=== PATIENT | male | born 1955 | race African-American/Black ===

== ENCOUNTER 2019-06-16 14:41 | Emergency (ER) | payer MEDICARE, MEDICAID | END 2019-06-16 15:57 | disposition home or self-care (01) | LOC: ERS 14:41 | DX: L97.929 Non-pressure chronic ulcer of unspecified part of left lower leg with unspecified severity (principal) | CPT/HCPCS: 99283 ==

== ENCOUNTER 2019-07-04 16:02 | Inpatient (IN) | payer MEDICARE, MEDICAID ==
--- NOTE | 2019-07-04 16:41 | PDOC.FPRHP ---
- History of Present Illness Chief Complaint: foot pain, black toe History of Present Illness: This is a 64yo M who is a direct admit from [facility] for left foot pain and ulcer. The patient was at clinic to establish care earlier today. He states that about 2 weeks ago he had excruciating left foot pain and went to the ER. He was told he had a chronic foot ulcer and was given oral antibiotics and sent home. He was set up with outpatient wound care. He states that yesterday at wound care either his left second digit fell off or amputated. He notes that the wound care provider asked to check labs to determine extent of his foot infection. He reports pain, swelling and an odor to his left foot. ED Course: direct admission from clinic - History PMHx: None PSHx: None FHx: father - colon cancer, ; mom - DM, Social: Quit smoking 1 month go, 30+ pack year hx. 2-3 beers per day, no drinks in the past 2 weeks. Denies drugs. - Review of Systems General: denies: fever/chills, weight/appetite/sleep changes, night sweats, fatigue Respiratory: denies: cough, congestion, shortness of breath Cardiovascular: denies: chest pain, palpitation, edema Gastrointestinal: denies: nausea, vomiting, diarrhea, constipation, abdominal pain Musculoskeletal: reports: pain, tenderness, swelling. denies: stiffness Neurological: denies: weakness - Vital signs Vitals from [facility] clinic: Weight: 131.8lbs, Temp 98.6F, HR 87, RR 16, BP 122/74, O2 sat 99% RA - Physical Exam Constitutional: NAD, awake, alert and oriented -Constitutional: cachectic HEENT: normocephalic and atraumatic, grossly normal vision, MMM -HEENT: Very hard of hearing Neck: supple, FROM Heart: RRR Lungs: CTAB Abdomen: soft, no masses/distention Neurological: no focal deficit -Skin: 1+ pitting edema to the LLE; induration over left foot. Left second digit on foot with exposed bone present; unable to palpate pulses on left foot. Little to no sensation in LLE, decreased sensation in RLE. Erythema present up to lower ankle. Dry ulcer on plantar surface of L great toe Psychiatric: normal mood and affect FMR H&P: Results - Labs Result Diagrams: 07/05/19 08:49 07/05/19 08:49 FMR H&P: A/P - Problem List (1) Osteomyelitis Current Visit: Yes Status: Acute Code(s): M86.9 - OSTEOMYELITIS, UNSPECIFIED (2) PVD (peripheral vascular disease) Current Visit: Yes Status: Acute Code(s): I73.9 - PERIPHERAL VASCULAR DISEASE, UNSPECIFIED (3) Peripheral neuropathy Current Visit: Yes Status: Acute Code(s): G62.9 - POLYNEUROPATHY, UNSPECIFIED (4) Cachexia Current Visit: Yes Status: Acute Code(s): R64 - CACHEXIA - Plan 1. Osteomyelitis - CBC, CMP, Blood cultures, A1c - MRI LLE - Will start vanc - Consult gen surg - Further plan pending results of work up. 2. PVD 3. Peripheral neuropathy - DM is most likely dx given source. Will check A1c, further work up pending results. 4. Cachexia - DM vs possible occult malignancy. Pt has lost apprx 20 kg in the past year - prealbumin, HIV, Hep C Diet Regular PPx SCD Code Full Dispo: patient is stable and in fair condition. Would expect surgical intervention during this hospitalization. Addendum - Attending - Attending Attestation Date/Time: 07/05/192006 I personally evaluated the patient and discussed the management with Dr. Guillen on 07/03. I agree with the History, Examination, Assessment and Plan documented above with any addition or exceptions noted below. Patient asymptomatic. Does not have pulses below the knee.
[2019-07-04 17:02] VITALS: BMI 15.7
[2019-07-04 18:20] LABS: #Eosinphils 0.1 thou/uL (0.0-0.7); #Lymphocytes 1.8 thou/uL (1.20-3.40); #Monocytes 0.4 thou/uL (0.11-0.59); #Neutrophils 6.7 thou/uL (1.40-6.50); %Basophils 0.5 % (0.0-1.0); %Eosinophils 0.9 % (0.0-10.0); %Monocytes 4.2 % (0.0-10.0); %Neutrophils 74.3 % (42.0-75.0); Hemoglobin 13.5 g/dL (14.0-18.0); Mean Corpuscular HGB CONC 31.9 g/dL (32.0-36.0); Mean Corpuscular Hemoglobin 30.6 pg (27.0-31.0); Mean Corpuscular Volume 95.9 fL (78.0-98.0); Mean Platelet Volume 8.3 fL (7.4-10.4); Platelet Count 306 thou/uL (130-400); RBC Distribution Width 12.4 % (11.5-14.5); Red Blood Cell (RBC) Count 4.41 mill/uL (4.70-6.10)
[2019-07-04] MEDS ORDERED: Vancomycin HCl 1.25 GM in Sodium Chloride 0.9% 250 ML 250 ML IVPB SCH (18:30)
[2019-07-04 18:35] LABS: Hemoglobin A1c 6.2 % (4.0-6.0)
[2019-07-04 18:40] LABS: ALT (SGPT) 13 U/L (8-55); AST (SGOT) 20 U/L (5-34); Albumin 4.4 g/dL (3.4-4.8); Alkaline Phosphatase 58 U/L (40-110); Anion Gap 13 mmol/L (10-20); BUN (Urea Nitrogen) 13 mg/dL (8.4-25.7); Bilirubin, Total 0.3 mg/dL (0.2-1.2); Calc. Creatinine Clearance 58 mL/min (70-130); Calcium 10.7 mg/dL (7.8-10.44); Carbon Dioxide 30 mmol/L (23-31); Chloride 106 mmol/L (98-107); Estimated GFR-MDRD 88; Globulin 4.6 g/dL (2.4-3.5); Glucose 93 mg/dL (80-115); Potassium 4.4 mmol/L (3.5-5.1); Sodium 145 mmol/L (136-145)
[2019-07-04 19:08] LABS: HIV (1/2) Antibody/Antigen Non-Reactive (NonReactive); HIV 1/2 INDEX 0.08 S/CO (<1.00)
[2019-07-05] MEDS: Vancomycin HCl 750 MG in Sodium Chloride 0.9% 250 ML 250 ML IVPB SCH ×2 (05:43→18:23)
--- NOTE | 2019-07-05 07:07 | PDOC.FM ---
- Subjective Subjective: Pt doing well this morning, no acute events overnight. He is very hard of hearing and requires yelling to hear you. Edema decreased. Minimal Pain. BL neuropathy. No known medical history. No fever/chills, n/v, Cp, SOB. - Objective MAR Reviewed: Yes Vital Signs & Weight: Vital Signs (12 hours) Temp Pulse Resp BP Pulse Ox 07/05/19 04:39 98.7 F 80 18 124/79 96 07/05/19 00:34 97.8 F 76 18 119/71 97 07/04/19 20:17 98.7 F 67 18 124/62 99 07/04/19 20:00 99 Weight Weight 57.153 kg I&O: 07/04/19 07/05/19 07/06/19 06:59 06:59 06:59 Intake Total 240 Output Total 1800 Balance -1560 Result Diagrams: 07/05/19 08:49 07/05/19 08:49 Phys Exam - Physical Examination Constitutional: NAD (near-deaf, polite, cachectic) HEENT: moist MMs Respiratory: no wheezing, no rales, no rhonchi, clear to auscultation bilateral Cardiovascular: RRR, no significant murmur Gastrointestinal: soft, non-tender, no distention, positive bowel sounds Musculoskeletal: no edema Neurological: moves all 4 limbs Psychiatric: normal affect Deviation from normal: Dry gangrene of 2nd left toe, plantar eschar on 1st L toe -: no erythema, drainage Dx/Plan (1) Osteomyelitis Code(s): M86.9 - OSTEOMYELITIS, UNSPECIFIED Status: Acute (2) PVD (peripheral vascular disease) Code(s): I73.9 - PERIPHERAL VASCULAR DISEASE, UNSPECIFIED Status: Acute (3) Peripheral neuropathy Code(s): G62.9 - POLYNEUROPATHY, UNSPECIFIED Status: Acute - Plan Plan: 64yo male with no previous medical history presented as direct admit from clinic for foot wound. #Dry Gangrene, concern for Osteomyelitis - L 2nd toe dry gangrene with plantar eschar on L great toe as well - BCx Pending - MRI LLE Pending - On Vanc (07/03), will cont - Pending surgery evaluation - VSS, afebrile, WBC WNL #PVD - decreased pulses BL LE - consider arterial US of LE and LUC - likely contributing to the above #Peripheral neuropathy - A1C 6.2, non-diabetic - HIV negative - RPR, Hep C, B12, TSH Pending - likely contributing to the above #Hypercalcemia - Ca 10.7, protein 9.0 - repeat CMP this AM Pending - PTH ordered #Cachexia - Possible occult malignancy vs poor nutrition. Pt has lost apprx 20 kg in the past year - prealbumin 20, HIV negative, Hep C pending - will consult magnesium mill operator Diet: Regular PPx: SCD IVF: SL Code: Full PCP: STEVE Dispo: Admitted to medical for dry gangrene, concern for osteo. MRI pending. Workup of neuropathy pending. Anticipate surgical intervention. Expected LOS > 48hrs. Addendum - Attending - Attending Attestation Date/Time: 07/05/19 1028 I personally evaluated the patient and discussed the management with Dr. Newton. I agree with the History, Examination, Assessment and Plan documented above with any addition or exceptions noted below. Patient stable. Continue workup for PVD and possible osteomyelitis. Will need surgical debridement. Continue Vanc and wound care.
[2019-07-05] MEDS ORDERED: Magnevist 469MG/ML 20 ML VIAL ONE (08:24)
[2019-07-05 09:13] LABS: #Eosinphils 0.1 thou/uL (0.0-0.7); #Lymphocytes 1.9 thou/uL (1.20-3.40); #Monocytes 0.6 thou/uL (0.11-0.59); #Neutrophils 6.9 thou/uL (1.40-6.50); %Basophils 0.4 % (0.0-1.0); %Eosinophils 0.8 % (0.0-10.0); %Lymphocytes 20.3 % (21.0-51.0); %Monocytes 5.9 % (0.0-10.0); %Neutrophils 72.5 % (42.0-75.0); Hemoglobin 12.4 g/dL (14.0-18.0); Mean Corpuscular HGB CONC 31.8 g/dL (32.0-36.0); Mean Corpuscular Hemoglobin 30.4 pg (27.0-31.0); Mean Corpuscular Volume 95.6 fL (78.0-98.0); Mean Platelet Volume 7.9 fL (7.4-10.4); Platelet Count 295 thou/uL (130-400); RBC Distribution Width 12.4 % (11.5-14.5); Red Blood Cell (RBC) Count 4.07 mill/uL (4.70-6.10); White Blood Cell (WBC) Count 9.5 thou/uL (4.8-10.8)
[2019-07-05 09:36] LABS: ALT (SGPT) 11 U/L (8-55); AST (SGOT) 14 U/L (5-34); Albumin 3.6 g/dL (3.4-4.8); Alkaline Phosphatase 49 U/L (40-110); Anion Gap 13 mmol/L (10-20); BUN (Urea Nitrogen) 12 mg/dL (8.4-25.7); Bilirubin, Total 0.3 mg/dL (0.2-1.2); Calc. Creatinine Clearance 57 mL/min (70-130); Calcium 9.5 mg/dL (7.8-10.44); Carbon Dioxide 28 mmol/L (23-31); Chloride 106 mmol/L (98-107); Estimated GFR-MDRD 86; Globulin 3.7 g/dL (2.4-3.5); Glucose 205 mg/dL (80-115); Potassium 4.2 mmol/L (3.5-5.1); Protein, Total 7.3 g/dL (5.8-8.1); Sodium 143 mmol/L (136-145)
[2019-07-05 09:54] LABS: Thyroid Stimulating Hormone 1.2694 uIU/mL (0.35-4.94)
[2019-07-05 09:59] LABS: Syphilis Antibody Nonreactive (Nonreactive); Syphilis Antibody Index 0.03 S/CO (<1.00 Non-Reactive)
--- NOTE | 2019-07-05 11:13 | ULT ---
BILATERAL LOWER EXTREMITY ARTERIAL VASCULAR DUPLEX WITH COLOR AND SPECTRAL DOPPLER IMAGING: History: Peripheral vascular disease, gangrene left toe, diminished pulses. FINDINGS: Right and left lower extremities are evaluated from groin to ankle including common femoral artery, p rofunda femoral artery, superficial femoral artery, popliteal artery, anterior tibial artery, posteri or tibial artery and dorsalis pedis arteries. There is some increased velocity in the mid portion of the left superficial femoral artery. Triphasic flow is noted involving the right common femoral artery, superficial femoral artery, and po pliteal artery with normal phasic flow within the profunda artery as well as the anterior tibial, pos terior tibial, and dorsalis pedis arteries. On the left side, there is triphasic flow in the common femoral artery and proximal and mid superfici al femoral artery with monophasic flow within the profunda femoral artery, distal superficial femoral artery, popliteal artery, anterior tibial artery, posterior tibial artery, and dorsalis pedis arteri es. IMPRESSION: Moderate to severe abnormal waveforms bilaterally, somewhat worse on the left side with abnormal mono phasic flow noted from the distal superficial femoral artery distally on the left side. POS: [facility]
[2019-07-05] MEDS: Acetaminophen 325 MG TAB PO PRN (20:45)
--- NOTE | 2019-07-06 06:56 | PDOC.FM ---
- Subjective Subjective: Doing well this morning, states pain and swelling much improved. Tolerating PO well. No fever/chills, n/v. Eager to speak wtih surgeon. Very hard of hearing but able to communicate loudly. no concerns or acute events overnight. - Objective MAR Reviewed: Yes Vital Signs & Weight: Vital Signs (12 hours) Temp Pulse Resp BP Pulse Ox 07/06/19 04:27 98.5 F 76 18 115/51 L 98 07/05/19 19:56 99.2 F 76 18 118/68 99 Weight Admit Weight 57.153 kg Weight 57.153 kg I&O: 07/04/19 07/05/19 07/06/19 06:59 06:59 06:59 Intake Total 240 Output Total 1800 Balance -1560 Result Diagrams: 07/05/19 08:49 07/05/19 08:49 Phys Exam - Physical Examination Constitutional: NAD (resting comfortably, near deaf, very thing and cachextic appearing) HEENT: moist MMs Respiratory: no wheezing, no rales, no rhonchi, clear to auscultation bilateral Cardiovascular: RRR, no significant murmur, no rub Gastrointestinal: soft, non-tender, no distention, positive bowel sounds Musculoskeletal: no edema LLE 1st toe with eschar, 2nd toe with exposed bone, dry gangrene Neurological: moves all 4 limbs Psychiatric: normal affect Dx/Plan (1) Osteomyelitis Code(s): M86.9 - OSTEOMYELITIS, UNSPECIFIED Status: Acute (2) PVD (peripheral vascular disease) Code(s): I73.9 - PERIPHERAL VASCULAR DISEASE, UNSPECIFIED Status: Acute (3) Peripheral neuropathy Code(s): G62.9 - POLYNEUROPATHY, UNSPECIFIED Status: Acute - Plan Plan: 64yo male with no previous medical history presented as direct admit from clinic for foot wound. #Dry Gangrene, concern for Osteomyelitis - L 2nd toe dry gangrene with plantar eschar on L great toe as well - BCx NGTD - Refused MRI - On Vanc (07/03), will cont - Pending surgery evaluation on 07/06 - VSS, afebrile, WBC WNL #PVD - decreased pulses BL LE - Arterial US with moderate to severe abnormal waveform BL, worse on L - consider CV surg consult - likely contributing to the above - lipid panel pending, will start statin as appropriate #Peripheral neuropathy - A1C 6.2, non-diabetic - HIV negative - RPR, B12, TSH WNL - Hep C pending - likely 2/2 PVD #Hypercalcemia - Ca 10.7, protein 9.0 - PTH WNL - mild anemia with weight loss and neuropathy, concern for MM - SPEP, UPEP, and immunofixation pending #Cachexia - Possible occult malignancy vs poor nutrition. Pt has lost approx 20 kg in the past year - prealbumin 20, HIV negative, Hep C pending - will consult watch dial maker Diet: Regular, NPO at [place] PPx: SCD IVF: SL Code: Full PCP: STEVE Dispo: Admitted to medical for dry gangrene, concern for osteo. PVD, further workup pending. Anticipate surgical intervention. Expected LOS > 48hrs. Addendum - Attending - Attending Attestation Date/Time: 07/06/19 1004 I personally evaluated the patient and discussed the management with Dr. Newton. I agree with the History, Examination, Assessment and Plan documented above with any addition or exceptions noted below. Patient stable. Continue abx for suspected osteo and dry gangrene of foot. Surgery consult in AM. Likely has vascular disease based on U/S report.
[2019-07-06 07:01] LABS: Vancomycin, Trough 7.6 ug/mL
[2019-07-06 07:05] LABS: Cardiac Risk 3.8 (Less than 4.5)
[2019-07-06] MEDS: Vancomycin HCl 750 MG in Sodium Chloride 0.9% 250 ML 250 ML IVPB SCH (08:26)
[2019-07-06] MEDS: Vancomycin HCl 1.25 GM in Sodium Chloride 0.9% 250 ML 250 ML IVPB SCH ×2 (08:39→20:53)
[2019-07-06] MEDS: Acetaminophen 325 MG TAB PO PRN (20:52)
[2019-07-06] MEDS ORDERED: Atorvastatin Calcium 20 MG TAB PO SCH (21:00)
--- NOTE | 2019-07-07 07:18 | PDOC.FM ---
- Subjective Subjective: no acute overnight events. Pt resting comfortably. VSS - Objective MAR Reviewed: Yes Vital Signs & Weight: Vital Signs (12 hours) Temp Pulse Resp BP Pulse Ox 07/07/19 04:00 97.9 F 72 20 94/60 97 07/07/19 00:00 98.9 F 77 20 126/67 95 07/06/19 20:00 98.6 F 83 20 113/71 98 Weight Admit Weight 57.153 kg Weight 57.153 kg Result Diagrams: 07/05/19 08:49 07/05/19 08:49 Phys Exam - Physical Examination Constitutional: NAD HEENT: moist MMs Neck: no nodes, no JVD Respiratory: no wheezing, no rales, no rhonchi, clear to auscultation bilateral Cardiovascular: RRR Gastrointestinal: soft, non-tender L 21nd toe, dark and necrotic, digit mostly self amputated. Neurological: moves all 4 limbs Psychiatric: normal affect, A&O x 3 Deviation from normal: hearing impaired. Dx/Plan (1) Cachexia Code(s): R64 - CACHEXIA Status: Acute (2) Osteomyelitis Code(s): M86.9 - OSTEOMYELITIS, UNSPECIFIED Status: Acute (3) PVD (peripheral vascular disease) Code(s): I73.9 - PERIPHERAL VASCULAR DISEASE, UNSPECIFIED Status: Acute (4) Peripheral neuropathy Code(s): G62.9 - POLYNEUROPATHY, UNSPECIFIED Status: Acute - Plan Plan: 64yo male with no previous medical history presented as direct admit from clinic for foot wound. #Dry Gangrene, concern for Osteomyelitis - L 2nd toe dry gangrene with plantar eschar on L great toe as well - BCx NGTD - Refused MRI, LE arterial US results pending. - On Vanc (07/03), will cont - Pending surgery evaluation on 07/06 - VSS, afebrile, WBC WNL #PVD - decreased pulses BL LE - Arterial US with moderate to severe abnormal waveform BL, worse on L - consider CV surg consult - likely contributing to the above - lipid panel pending, will start statin as appropriate #Peripheral neuropathy - A1C 6.2, non-diabetic - HIV negative - RPR, B12, TSH WNL - Hep C pending - likely 2/2 PVD #Hypercalcemia - Ca 10.7, protein 9.0 - PTH WNL - mild anemia with weight loss and neuropathy, concern for MM - SPEP, UPEP, and immunofixation pending #Cachexia - Possible occult malignancy vs poor nutrition. Pt has lost approx 20 kg in the past year - prealbumin 20, HIV negative, Hep C pending - will consult propagation manager Diet: Regular, NPO at [place] PPx: SCD IVF: SL Code: Full PCP: STEVE Dispo: Admitted to medical for dry gangrene, concern for osteo. PVD, further workup pending. Anticipate surgical intervention. Expected LOS > 48hrs. Addendum - Attending - Attending Attestation Date/Time: 07/07/19 1772 I personally evaluated the patient and discussed the management with Dr. Schaefer. I agree with the History, Examination, Assessment and Plan documented above with any addition or exceptions noted below. Surgery does not plan for intervention at this time. Will switch to 10 days of PO doxy and d/c home.
[2019-07-07] MEDS ORDERED: Vancomycin HCl 1.25 GM in Sodium Chloride 0.9% 250 ML 250 ML IVPB SCH (10:00)
[2019-07-07] MEDS ORDERED: Iopamidol 370 76% 100 ML VIAL ONE (10:12)
[2019-07-07] MEDS: Vancomycin HCl 1.25 GM in Sodium Chloride 0.9% 250 ML 250 ML IVPB SCH (10:39)
--- NOTE | 2019-07-07 12:21 | CT ---
CTA OF THE ABDOMEN AND PELVIS WITH BILATERAL LOWER EXTREMITY RUNOFF UTILIZING IV CONTRAST AND 3D REFO RMATTED IMAGING: INDICATION: Exam arterial flow for left foot cellulitis and gangrene. TECHNIQUE: Multiple CT images were obtained of the abdomen and pelvis with bilateral lower extremity runoff. Th e patient moved during the examination and was uncooperative during a portion of the examination lauren cing significant motion artifact at the level of the knees, forelegs, and ankles. FINDINGS: The lung bases are clear. No focal hepatic lesion is grossly evident. Visualized aspects of the gallbladder, adrenal glands, a nd spleen appear within normal limits. No hydronephrosis is evident. No free fluid or enlarged lymp h nodes are evident. There is a moderate amount of retained stool within the colon. Small bowel is of normal caliber. No free fluid is evident in the pelvis. Bladder is partially decompressed. There is scattered degenerative and osteoarthritic change. No definite acute osseous abnormality is evident. No aneurysmal dilatation, stenosis, or occlusion is seen involving the abdominal aorta. The celiac a nd SMA are widely patent. The renal arteries are widely patent. ERLINDA is patent. Common iliacs are p atent. The right common femoral, femoral bifurcation, superficial femoral artery on the right is widely garcia nt. Right popliteal artery is difficult to evaluate due to motion artifact. No definite stenosis ev ident. Visualized tibioperoneal trunk appears patent. The right anterior tibial artery is occluded. There is 2-vessel runoff to the level of the right ankle. The left common femoral and femoral bifurcation is patent. The profunda is patent. The left superfi cial femoral artery is patent. The left popliteal artery is difficult to evaluate due to motion kahlil fact. The proximal left anterior tibial artery is patent, but then demonstrates occlusion at the lev el of the distal left ankle. There is also occlusion of the distal left posterior tibial artery at t he level of the distal left foreleg. There is single arterial runoff to the level of the ankle via t he peroneal artery. There is a moderate-sized osteochondral defect involving the left distal femur a t the level of the left knee. IMPRESSION: 1. 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 2. Complete occlusion of the distal left anterior tibial artery and distal left posterior tibial art joseph at the distal left foreleg. 3. No hemodynamically significant stenosis seen within the abdomen or pelvis. No hemodynamically si gnificant stenosis seen involving the common femoral or superficial femoral arteries. 4. Some limitation to the exam as above. POS: Hank
[2019-07-07 16:12] VITALS: BP 122/68; TEMP 98.2
--- NOTE | 2019-07-07 21:41 | CON ---
DATE OF CONSULTATION: HISTORY OF PRESENT ILLNESS: A 64-year-old black male, more than rhs-fyum-p-day smoker until 2 months ago when his brother told him he should quit. The patient reports because of dry gangrene in the left second toe admitted by [facility] practice service on 07/04/2019. I am seeing him on 07/07/2019. He had an aortogram with runoff noting fairly clean aortoiliac, superficial femoral artery, and popliteal arteries with occlusion of his anterior tibial, left leg, and posterior tibial and runoff through his peroneal only to his ankle. By the time I am seeing him, his left second toe distally has auto amputated. There has been no cellulitis. He has been on antibiotics. He is not taking home medications. Hemoglobin A1 to A1c is 6 and glucoses have been 106. The patient is very hard of hearing and I have to yell to him to communicate and write things down also, still there are communication deficits. the patient has been on vancomycin. Tobacco as above. Alcohol occasionally. MEDICATIONS: None routinely. PAST SURGICAL AND MEDICAL HISTORY: Noncontributory. The patient denies having any foot pain. PHYSICAL EXAMINATION: VITAL SIGNS: 130/65, heart rate 76, respiratory rate 18. HEAD, EARS, EYES, NOSE AND THROAT: Unremarkable. LUNGS: Clear to auscultation. CARDIAC: Regular rate and rhythm without murmur or gallop. ABDOMEN: Soft and nontender. EXTREMITIES: Palpable femoral and popliteal pulses bilaterally. He has auto amputation of the left second toe distally. There is some dry gangrene in the proximal toe. There is no cellulitis. There is no odor. There is no swelling of the foot. The foot is not tender. I cannot feel pedal pulses. LABORATORY DATA: Renal function is normal. CBC is normal. ASSESSMENT AND PLAN: 1. Peripheral arterial disease with dry gangrene in the left second toe. Would recommend that he wash this daily with soap and water and apply Betadine to it. He should follow up in my office in 2 to 3 weeks. No antibiotics are indicated. I have communicated this with the family practice service and by the time of this dictation, the patient has already been discharged home. 2. Tobacco abuse. 3. Cachexia. 4. Severe hearing loss. Job ID: [id number]
--- NOTE | 2019-07-07 22:00 | DIS ---
DATE OF ADMISSION: 07/04/2019 DATE OF DISCHARGE: 07/07/2019 RESIDENT: Radha Schaefer DO ADMITTING ATTENDING: Dr. Banda DISCHARGE ATTENDING: Dr. Foster CONSULTS: Dr. Dean with General Surgery, Dr. Mejia with Cardiovascular Surgery, dietitian, and Wound Care. PROCEDURES: Aorta with runoff CTA on 07/06, which showed left anterior tibial and posterior tibial arterial occlusion distally, but no proximal occlusions. Left lower extremity ultrasound on 07/04, which showed moderate to severe abnormal waveforms bilaterally, somewhat worse on the left side with abnormal monophasic flow noted in the distal superficial femoral artery distally on the left side. DIAGNOSES: 1. Dry gangrene. 2. Peripheral vascular disease. 3. Peripheral neuropathy. 4. Hypercalcemia. 5. Cachexia. DISCHARGE MEDICATIONS: 1. Doxycycline 100 mg p.o. b.i.d. for 10 days. 2. Atorvastatin 20 mg p.o. q.h.s., 30 tablets given. HISTORY OF PRESENT ILLNESS/HOSPITAL COURSE: Mr. Maharaj is a 64-year-old male that came in to [facility] on Sunday afternoon with left foot pain and ulcer. He said he had been at Wound Care where his toe fell off after being cleansed. This surprised him very much and he came to the clinic. The patient was kept over the weekend due to needing a surgical consult with a surgeon who does amputations. However, Dr. Dean was consulted on morning of 07/06, and he states that this patient will be better treated if avoidance of surgery primarily during this time, and this was confirmed with Dr. Mejia, CT Surgery. He discussed this case with Dr. Dean. They are in agreeance that surgery is not recommended for the patient at this time. However, it may be something that is necessary later on down the prognostic course. The patient did minimally improve after starting vancomycin made swelling and pain and redness slightly go down per the patient, so we are discharging him on 10 days of doxycycline b.i.d. He is to follow up with Dr. Dean in 3 to 4 weeks and with [facility] in 1 week. The patient has further workup pending for his cachexia where SPEP, UPEP, and immunofixation were ordered to rule out multiple myeloma. Syphilis was nonreactive. HIV also nonreactive. A1c was 6.2, triglycerides 60, total cholesterol 143, LDL 93, HDL 38, B12 of 240, folate 14, TSH 1.2, parathyroid hormone nml. DISPOSITION: Stable upon discharge and eager to return home. DISCHARGE INSTRUCTIONS: Location to home with daily soap and water washing with Betadine appliance. DIET: Consistent carb, heart healthy diet. ACTIVITY: As tolerated. FOLLOW UP: With Dr. Dean in 3 to 4 weeks' time and primary care physician at [facility], Dr. Guerrero, in 1 week. Job ID: [id number] [email or web address]
--- NOTE | 2019-07-08 12:18 | PQF ---
TOMMIE HUMPHREY INDRA * r [id number] CLINICAL DOCUMENTATION IMPROVEMENT CLARIFICATION FORM: ICD-10 Updated PLEASE DO AN ADDENDUM TO THE PROGRESS NOTE WITH ANY DOCUMENTATION UPDATES OR ADDITIONS AND CARRY THROUGH TO DC SUMMARY. THANK YOU. Date: 07/08/2019 ATTN: DR. Antonia MCGRAW Please exercise your independent, professional judgment in responding to the clarification form. Clinical indicators are provided on the bottom of this form for your review. Please check appropriate box(s): [ ] Cachexia In addition, please specify: Present on Admission (POA): [ * ] Yes CLINICAL INDICATORS - SIGNS / SYMPTOMS / LABS / RESULTS AND LOCATION IN MR 07/03 H&P ( [facility]) PHYSICAL EXAM: CACHECTIC 07/04 RD: ASSESSMENT: BMI 15.7, SEVERE GENERALIZED MUSCLE AND FAT WASTING OBSERVED SUGGESTIVE OF SEVERE MALNUTRITION; NOTES 20# WEIGHT LOSS OVER THE PAST YEAR. 07/04 PN ( ZACKERY) CACHEXIA- POSSIBLE OCCULT MALIGNANCY VS POOR NUTRITION. 07/06 DISCHARGE SUMMARY ( [facility]ILUZ) DRY GANGRENE, PVD, PERIPHERAL NEUROPATHY, HYPERCALCEMIA, CACHEXIA RISK: DAILY ALCOHOL, TOBACCO USE, CACHEXIA ( QUITTING 1 MONTH AGO) ( H&P/ [facility]) TREATMENTS: DIETARY CONSULT (07/04) ENSURE ENLIVE TID Moderate Malnutrition (in acute illness) Energy Intake: <75% of estimated energy requirement for > 7 days Weight Loss: 1-2%/1 week; 5%/ 1 month; 7.5%/3 months Other: mild body fat loss; mild muscle mass loss; mild fluid accumulation; Severe Malnutrition (in acute illness) Energy Intake: < 50% of estimated energy requirement for > 5 days Weight Loss: >1-2%/1 week; >5%/1 month; >7.5%/3 months Other: moderate body fat loss; moderate muscle mass loss; moderate- severe fluid accumulation; measurably reduced patient ombudsperson strength Moderate Malnutrition (in chronic illness) Energy Intake: <75% of estimated energy requirement for >1 month Weight Loss: 5%/1 month; 7.5%/3 months; 10%/6 months; 20%/1 year Other: mild body fat loss; mild muscle mass loss; mild fluid accumulation Severe Malnutrition (in chronic illness) Energy Intake: <75% of estimated energy requirement for >1 month Weight Loss: >5%/1 month; >7.5%/3 months; >10%/6 months; >20%/1 year Other: severe body fat loss; severe muscle mass loss; severe fluid accumulation ; measurably reduced patient ombudsperson strength THANK YOU! RACHELL (This form is maintained as a part of the permanent medical record) 2014 [employer]. All Rights Reserved [email or web address]
[2019-07-08 13:37] LABS: Albumin-Ur 32.9 % (.); Alpha 1 - Ur 4.8 % (.); Alpha 2 - Ur 11.4 % (.); Beta-Ur 20.3 % (.); Gamma-Ur 30.6 % (.); M-Spike,% Not Observed % (Not Observed); Protein, Urine 6.8 mg/dL (Not Estab.)
--- NOTE | 2019-07-09 08:03 | PQF ---
TOMMIE HUMPHREYAGNIESZKA [id number] CLINICAL DOCUMENTATION CLARIFICATION FORM: POST DISCHARGE Addendum to original discharge summary date: ____ Late entry note date: __ DATE:07/09/2019 ATTN: Agnieszka Barros Please exercise your independent, professional judgment in responding to the clarification form. 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 ____ [ ] Unable to determine For continuity of documentation, please document condition throughout progress notes and discharge summary. Thank You. CLINICAL INDICATORS - SIGNS / SYMPTOMS / LABS H&P p1 07/03 Dr Guillen Admite from [facility] for Left foot pain and ulcer H&P p2 07/03 Dr Guillen 1+ pitting edema at the LLE; induration over left foot Hospitalist PN p4 07/05 Dr Dhillon Continue abx for suspected Osteo and Drg gangrene of Foot PN p2 07/04 concern for Osteomyelitis RISK FACTORS H&P p1 07/03 64 year-old Male H&P p2 07/03 PVD H&P p2 07/03 Peripheral Neuropath H&P p2 07/03 Cachexia Hospitalist PN p2 07/05 Drg gangrene Hospitalist PN p4 07/05 - Hypercalcemia Consult p2 07/06 Tobacco Abuse TREATMENTS MAY 20 IV Vancomycin 1.25 MAY 20- IVF NS 1L MRI ordered 07/03 LE ultrasound 07/03 GS Consult 07/06 Rolando Dean (This form is maintained as a part of the permanent medical record) 2014 [employer]. All Rights Reserved [email or web address]
[2019-07-09 13:12] LABS: IgA - Total IgA (Sendout) 405 mg/dL (61-437); Immunoglobulin - G (Sendout) 1318 mg/dL (603-1613); Immunoglobulin - M (Sendout) 64 mg/dL (20-172)
[2019-07-09 13:37] LABS: A/G Ratio 0.8 (0.7-1.7); Albumin 2.9 g/dL (2.9-4.4); Alpha 1 0.3 g/dL (0.0-0.4); Gamma 1.3 g/dL (0.4-1.8); Globulin, Total 3.7 g/dL (2.2-3.9); M-Spike Not Observed g/dL (Not Observed)
== END 2019-07-07 16:04 | disposition home health service (06) | DRG 300 ==
LOC: T4-B 16:24
PROVIDERS: ADMIT Student in an Organized Health Care Education/Training Program; ATTEND Student in an Organized Health Care Education/Training Program
DX: I70.262 Atherosclerosis of native arteries of extremities with gangrene, left leg (principal); R64 Cachexia; Z68.1 Body mass index [BMI] 19.9 or less, adult; L97.529 Non-pressure chronic ulcer of other part of left foot with unspecified severity; E83.52 Hypercalcemia; G62.9 Polyneuropathy, unspecified; H91.90 Unspecified hearing loss, unspecified ear; F17.200 Nicotine dependence, unspecified, uncomplicated
CPT/HCPCS: 36415; 75635; 80053; 80061; 80202; 82607; 82746; 83036; 83970; 84134; 84165; 84166; 84443; 85025; 86334; 86780; 87040; 87389; 87521; 93922; 93923; A9579; J3370; J7050; Q9967

== ENCOUNTER 2019-07-18 16:16 | Emergency (ER) | payer MEDICARE, MEDICAID ==
[2019-07-18 16:57] LABS: #Eosinphils 0.1 thou/uL (0.0-0.7); #Lymphocytes 1.7 thou/uL (1.20-3.40); #Monocytes 0.4 thou/uL (0.11-0.59); #Neutrophils 4.5 thou/uL (1.40-6.50); %Basophils 0.2 % (0.0-1.0); %Monocytes 5.4 % (0.0-10.0); %Neutrophils 67.4 % (42.0-75.0); Hemoglobin 11.9 g/dL (14.0-18.0); Mean Corpuscular HGB CONC 32.4 g/dL (32.0-36.0); Mean Corpuscular Volume 95.6 fL (78.0-98.0); Mean Platelet Volume 8.6 fL (7.4-10.4); Platelet Count 226 thou/uL (130-400); RBC Distribution Width 12.5 % (11.5-14.5); Red Blood Cell (RBC) Count 3.83 mill/uL (4.70-6.10); White Blood Cell (WBC) Count 6.7 thou/uL (4.8-10.8)
[2019-07-18 17:22] LABS: ALT (SGPT) 13 U/L (8-55); AST (SGOT) 16 U/L (5-34); Albumin 3.9 g/dL (3.4-4.8); Alkaline Phosphatase 51 U/L (40-110); Anion Gap 10 mmol/L (10-20); BUN (Urea Nitrogen) 13 mg/dL (8.4-25.7); Bilirubin, Total 0.4 mg/dL (0.2-1.2); Calc. Creatinine Clearance 0 mL/min (70-130); Calcium 9.6 mg/dL (7.8-10.44); Carbon Dioxide 29 mmol/L (23-31); Chloride 107 mmol/L (98-107); Estimated GFR-MDRD 83; Globulin 3.3 g/dL (2.4-3.5); Glucose 106 mg/dL (80-115); Potassium 3.4 mmol/L (3.5-5.1); Protein, Total 7.2 g/dL (5.8-8.1); Sodium 143 mmol/L (136-145)
--- NOTE | 2019-07-18 17:24 | RAD ---
Radiograph left foot 3 views: HISTORY: 64-year-old male this was acute injury FINDINGS: No acute displaced fracture identified. Absence of second distal phalanx. Mild focal osseous expansio n at mid shaft of fourth proximal phalanx suggestive of old healed fracture. Diffuse osteopenia. Flatfoot. Moderate DJD at first MTP. Diffuse osteopenia. IMPRESSION: 1. No definite acute fracture identified. 2. 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 3. 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 4. Old healed fracture of fourth proximal phalanx. 5. Pes planus.
== END 2019-07-18 18:59 | disposition home or self-care (01) ==
LOC: ERS 16:16
DX: S91.102A Unspecified open wound of left great toe without damage to nail, initial encounter (principal); F17.200 Nicotine dependence, unspecified, uncomplicated; X58.XXXA Exposure to other specified factors, initial encounter
CPT/HCPCS: 80053; 83605; 85025

== ENCOUNTER 2021-05-13 10:35 | Inpatient (IN) | payer MEDICARE, MEDICAID ==
[2021-05-13] MEDS ORDERED: Dextrose 50% Abboject 50 ML SYRINGE SLOW IVP PRN (11:30)
[2021-05-13] MEDS ORDERED: Dextrose 5% in Water 1,000 ML IV PRN (11:30)
[2021-05-13] MEDS ORDERED: HumaLOG 300 UNITS/3 ML VIAL SC PRN ×2 (11:30)
[2021-05-13] MEDS ORDERED: Aspirin 81 mg Enteric Coated Tablet PO SCH (12:45)
[2021-05-13 13:26] VITALS: BMI 18.8
[2021-05-13 14:08] LABS: Hemoglobin A1c 6.1 % (4.0-6.0)
[2021-05-13 14:12] LABS: #Eosinphils 0.1 thou/uL (0.0-0.7); #Lymphocytes 1.8 thou/uL (1.20-3.40); #Monocytes 0.5 thou/uL (0.11-0.59); #Neutrophils 2.5 thou/uL (1.40-6.50); %Basophils 0.6 % (0.0-1.0); %Eosinophils 2.1 % (0.0-10.0); %Lymphocytes 37.2 % (21.0-51.0); %Monocytes 10.2 % (0.0-10.0); %Neutrophils 49.9 % (42.0-75.0); Hemoglobin 12.7 g/dL (14.0-18.0); Mean Corpuscular HGB CONC 32.4 g/dL (32.0-36.0); Mean Corpuscular Hemoglobin 31.2 pg (27.0-31.0); Mean Corpuscular Volume 96.4 fL (78.0-98.0); Mean Platelet Volume 8.3 fL (7.4-10.4); Platelet Count 216 thou/uL (130-400); RBC Distribution Width 12.2 % (11.5-14.5); Red Blood Cell (RBC) Count 4.08 mill/uL (4.70-6.10); White Blood Cell (WBC) Count 4.9 thou/uL (4.8-10.8)
[2021-05-13 14:16] LABS: ALT (SGPT) 13 U/L (8-55); AST (SGOT) 15 U/L (5-34); Alkaline Phosphatase 39 U/L (40-110); Anion Gap 13 mmol/L (10-20); BUN (Urea Nitrogen) 12 mg/dL (8.4-25.7); Bilirubin, Total 0.3 mg/dL (0.2-1.2); Calc. Creatinine Clearance 70 mL/min (70-130); Calcium 9.6 mg/dL (7.8-10.44); Carbon Dioxide 27 mmol/L (23-31); Cardiac Risk 6.3 (Less than 4.5); Chloride 107 mmol/L (98-107); Cholesterol 201 mg/dl (< 200 Desired); Globulin 3.3 g/dL (2.4-3.5); Glucose 105 mg/dL (80-115); HDL Cholesterol 32 mg/dL (>60 Neg Risk); LDL Cholesterol, Calculated 144 mg/dL; Potassium 4.2 mmol/L (3.5-5.1); Protein, Total 7.3 g/dL (5.8-8.1); Sodium 143 mmol/L (136-145); Triglycerides 127 mg/dL (Less than 150)
[2021-05-13] MEDS: Nicotine 14 MG PATCH TD SCH (16:33)
[2021-05-13 17:37] LABS: SARS-CoV-2 PCR by NAA Not Detected (NotDetected)
[2021-05-13] MEDS ORDERED: Atorvastatin Calcium 40 MG TAB PO SCH (21:00)
[2021-05-14] MEDS ORDERED: Acetaminophen 325 MG TAB PO PRN (01:42)
[2021-05-14 04:58] LABS: #Basophils 0.1 thou/uL (0.0-0.2); #Eosinphils 0.2 thou/uL (0.0-0.7); #Lymphocytes 2.6 thou/uL (1.20-3.40); #Monocytes 0.6 thou/uL (0.11-0.59); #Neutrophils 2.6 thou/uL (1.40-6.50); %Basophils 0.9 % (0.0-1.0); %Eosinophils 3.1 % (0.0-10.0); %Lymphocytes 42.7 % (21.0-51.0); %Monocytes 10.2 % (0.0-10.0); %Neutrophils 43.1 % (42.0-75.0); Hemoglobin 12.7 g/dL (14.0-18.0); Mean Corpuscular HGB CONC 32.7 g/dL (32.0-36.0); Mean Corpuscular Hemoglobin 31.2 pg (27.0-31.0); Mean Corpuscular Volume 95.6 fL (78.0-98.0); Platelet Count 232 thou/uL (130-400); RBC Distribution Width 12.3 % (11.5-14.5); Red Blood Cell (RBC) Count 4.05 mill/uL (4.70-6.10)
[2021-05-14 05:32] LABS: ALT (SGPT) 11 U/L (8-55); AST (SGOT) 13 U/L (5-34); Albumin 3.7 g/dL (3.4-4.8); Alkaline Phosphatase 39 U/L (40-110); Anion Gap 12 mmol/L (10-20); BUN (Urea Nitrogen) 13 mg/dL (8.4-25.7); Bilirubin, Total 0.3 mg/dL (0.2-1.2); Calc. Creatinine Clearance 74 mL/min (70-130); Calcium 9.6 mg/dL (7.8-10.44); Carbon Dioxide 26 mmol/L (23-31); Chloride 111 mmol/L (98-107); Globulin 2.8 g/dL (2.4-3.5); Glucose 119 mg/dL (80-115); Potassium 4.1 mmol/L (3.5-5.1); Protein, Total 6.5 g/dL (5.8-8.1); Sodium 145 mmol/L (136-145)
[2021-05-14] MEDS ORDERED: Aspirin 81 mg Enteric Coated Tablet PO SCH (09:00)
[2021-05-14] MEDS ORDERED: guaiFENesin ER 600 MG TAB PO SCH (09:00)
[2021-05-14] MEDS ORDERED: Enoxaparin Sodium 40 MG/0.4 ML SYRINGE SC SCH (09:00)
[2021-05-14] MEDS: Nicotine 14 MG PATCH TD SCH (14:22)
[2021-05-14 16:05] VITALS: BP 108/50
[2021-05-14 16:07] VITALS: TEMP 98.5
== END 2021-05-14 17:52 | disposition home or self-care (01) | DRG 103 ==
LOC: NEURO 11:18 → SURG A 11:18 → UNDOADMIN 11:18
PROVIDERS: ADMIT Family Medicine; ATTEND Family Medicine
DX: G43.909 Migraine, unspecified, not intractable, without status migrainosus (principal); R64 Cachexia; E46 Unspecified protein-calorie malnutrition; Z68.1 Body mass index [BMI] 19.9 or less, adult; Z20.822 Contact with and (suspected) exposure to COVID-19; Z23 Encounter for immunization; F17.200 Nicotine dependence, unspecified, uncomplicated; E11.51 Type 2 diabetes mellitus with diabetic peripheral angiopathy without gangrene; Z79.84 Long term (current) use of oral hypoglycemic drugs; Z89.422 Acquired absence of other left toe(s); Z91.19 Patient's noncompliance with other medical treatment and regimen
CPT/HCPCS: 36415; 36416; 70551; 80053; 80061; 82607; 82746; 83036; 84134; 84443; 85025; 90471; 90732; G0009; J1650; U0003; U0005

== ENCOUNTER 2022-07-15 02:12 | Emergency (ER) | payer MEDICARE, OTHER ==
[2022-07-15] MEDS ORDERED: Bacitracin 1 PK ONE (02:33)
[2022-07-15] MEDS ORDERED: Lidocaine 1% w/Epinephrine 1:100K 20 ML VIAL ONE (02:33)
[2022-07-15] MEDS ORDERED: Boostrix 0.5 ML (Tdap) VIAL (>/=7 yrs of age) ONE (02:33)
[2022-07-15 03:31] LABS: #Lymphocytes 1.6 thou/uL (1.20-3.40); #Monocytes 0.4 thou/uL (0.11-0.59); #Neutrophils 6.5 thou/uL (1.40-6.50); %Basophils 0.2 % (0.0-1.0); %Eosinophils 0.3 % (0.0-10.0); %Lymphocytes 19.1 % (21.0-51.0); %Monocytes 4.8 % (0.0-10.0); %Neutrophils 75.7 % (42.0-75.0); Hemoglobin 13.5 g/dL (14.0-18.0); Mean Corpuscular HGB CONC 33.4 g/dL (32.0-36.0); Mean Corpuscular Hemoglobin 31.3 pg (27.0-31.0); Mean Corpuscular Volume 93.7 fl (78.0-98.0); Mean Platelet Volume 9.8 fL (7.4-10.4); Platelet Count 184 10x3/uL (130-400); RBC Distribution Width 12.7 % (11.5-14.5); Red Blood Cell (RBC) Count 4.32 mill/uL (4.70-6.10); White Blood Cell (WBC) Count 8.6 10x3/uL (4.8-10.8)
[2022-07-15 03:42] LABS: INR-International Normal Ratio 0.9; PTT 24.3 sec (22.9-36.1); Prothrombin Time 12.9 sec (12.0-14.7)
[2022-07-15 03:49] LABS: Acetaminophen Less than 10.0 mcg/mL (10.0-30.0); Alcohol 195 mg/dL (Less than 10); CK (CPK) 169 U/L (30-200); Salicylate Less than 8.0 mg/dL (15.0-30.0)
[2022-07-15 03:50] LABS: ALT (SGPT) 8 U/L (8-55); AST (SGOT) 20 U/L (5-34); Albumin 4.5 g/dL (3.4-4.8); Alkaline Phosphatase 51 U/L (40-110); Anion Gap 17 mmol/L (10-20); BUN (Urea Nitrogen) 9 mg/dL (8.4-25.7); Bilirubin, Total 0.2 mg/dL (0.2-1.2); Calc. Creatinine Clearance 0 mL/min (70-130); Calcium 9.7 mg/dL (7.8-10.44); Carbon Dioxide 23 mmol/L (23-31); Chloride 109 mmol/L (98-107); Estimated GFR 79; Globulin 3.4 g/dL (2.4-3.5); Glucose 110 mg/dL (80-115); Potassium 3.9 mmol/L (3.5-5.1); Protein, Total 7.9 g/dL (5.8-8.1); Sodium 145 mmol/L (136-145)
[2022-07-15] MEDS ORDERED: Thiamine HCl 100 MG, Folic Acid 1 MG in Dextrose 5 %-0.45 % NaCl 1,000 ML IVPB SCH (04:15)
[2022-07-15] MEDS ORDERED: Clindamycin 150 MG CAP ONE (05:21)
== END 2022-07-15 08:10 | disposition home or self-care (01) ==
LOC: ERS 02:12
DX: S02.31XA Fracture of orbital floor, right side, initial encounter for closed fracture (principal); S01.81XA Laceration without foreign body of other part of head, initial encounter; S02.40EA Zygomatic fracture, right side, initial encounter for closed fracture; S60.511A Abrasion of right hand, initial encounter; S80.211A Abrasion, right knee, initial encounter; W01.0XXA Fall on same level from slipping, tripping and stumbling without subsequent striking against object, initial encounter; Z23 Encounter for immunization
CPT/HCPCS: 12011; 36415; 70450; 70486; 71045; 72125; 76377; 80053; 80307; 82550; 83605; 84484; 85025; 85610; 85730; 90471; 90715; 93005; J3411; J7042